=== PATIENT | female | born 1980 | race African-American/Black ===

== ENCOUNTER 2020-06-09 20:30 | Emergency (ER) | payer MEDICAID ==
--- NOTE | 2020-06-09 21:25 | ER Document Report ---
ED Medical Screen (RME) - General Chief Complaint: Breast Problem Stated Complaint: BREAST CYST Time Seen by Provider: 06/09/20 21:15 Primary Care Provider: KEN DE LA TORRE [Primary Care Provider] - Follow up as needed Information source: Patient Notes: Patient is a 39-year-old female comes emergency room complaining of having a "cyst" on her breast. Patient states approximately 2 to 3 years ago she had a similar presentation where it turned out to be an abscess that spontaneously ruptured and she was taken the OR from what she says and cleaned out and put on antibiotics. This 1 started approximately 3 days ago with starting to get painful and large 2 days ago. Patient states she was waiting like she did last time for her to rupture but it has not and is gotten excessively very painful and sore. She has had a low-grade fever for the past couple of days. She denies any vomiting but has severe nausea with this. She rates her pain right now 5 out of 5. Vital signs here showed a heart rate of a 111 bpm, temp 99.3 orally and blood pressure 164/97. Physical examination: Patient is a well-nourished well-developed 39-year-old female though in no apparent distress is in obvious discomfort. Cardiac: Tachycardia at 111 bpm noted. Lungs: Bilateral breath sounds breath sounds decreased no rhonchi rales or wheeze heard throughout. Breast: On a quick examination of patient's area concern right breast looks moderately swollen moderate erythema is noted throughout the nipple on quick examination does not show any dimpling at this time. But there is moderate tenderness on the end of the breast to light palpation. Further evaluation is going to have to be made when patient can completely undressed in her room in the back. I have greeted and performed a rapid initial assessment of this patient. A comprehensive ED assessment and evaluation of the patient, analysis of test results and completion of the medical decision making process will be conducted by additional ED providers. Dictation of this chart was performed using voice recognition software; therefore, there may be some unintended grammatical errors. Evaluation of patient to be performed by the provider in the back also to decide whether ultrasound of the breast is needed or CT. Physical Exam - Vital signs Vitals: Temp Pulse Resp BP Pulse Ox 99.3 F 111 H 12 154/93 H 99 06/09/20 20:44 06/09/20 20:44 06/09/20 20:44 06/09/20 20:44 06/09/20 20:44 Course - Vital Signs Vital signs: Temp Pulse Resp BP Pulse Ox 99.3 F 111 H 12 154/93 H 99 06/09/20 20:44 06/09/20 20:44 06/09/20 20:44 06/09/20 20:44 06/09/20 20:44 Doctor's Discharge - Discharge Referrals: LOCALMD,NO [Primary Care Provider] - Follow up as needed
[2020-06-09] MEDS ORDERED: ONDANSETRON HCL INJ/PF 4 MG/2 ML SDV IV ONE (21:28)
[2020-06-09] MEDS ORDERED: ONDANSETRON 4 MG TAB.RAPDIS PO ONE (21:30)
[2020-06-09] MEDS ORDERED: ONDANSETRON 4 MG TAB.RAPDIS ONE (21:31)
[2020-06-09 22:37] LABS: ABSOLUTE LYMPHOCYTES (AUTO) 1.1 10^3/uL (0.5-4.7); ABSOLUTE MONOCYTES (AUTO) 0.6 10^3/uL (0.1-1.4); ABSOLUTE NEUT (AUTO) 7.6 10^3/uL (1.7-8.2); BASOPHILS % (AUTO) 0.2 % (0-2); EOSINOPHILS % (AUTO) 0.2 % (0-6); HEMATOCRIT 40.1 % (36.0-47.0); HEMOGLOBIN 13.6 g/dL (12.0-15.5); LYMPHOCYTES % (AUTO) 11.8 % (13-45); MEAN CORPUSCULAR HEMOGLOBIN 31.6 pg (27.0-33.4); MEAN CORPUSCULAR HGB CONC 33.9 g/dL (32.0-36.0); MEAN CORPUSCULAR VOLUME 93 fl (80-97); MONOCYTES % (AUTO) 6.1 % (3-13); PLATELET COUNT 188 10^3/uL (150-450); RED BLOOD COUNT 4.31 10^6/uL (3.72-5.28); RED CELL DISTRIBUTION WIDTH 14.5 % (11.5-14.0); SEGMENTED NEUTROPHILS % (AUTO) 81.7 % (42-78); TOTAL CELLS COUNTED % (AUTO) 100 %; WHITE BLOOD COUNT 9.3 10^3/uL (4.0-10.5)
[2020-06-09 23:02] LABS: ALBUMIN 4.3 g/dL (3.5-5.0); ALKALINE PHOSPHATASE 96 U/L (38-126); ANION GAP 8 (5-19); ASPARTATE AMINO TRANSFERASE 52 U/L (14-36); BILIRUBIN,TOTAL 0.4 mg/dL (0.2-1.3); BLOOD UREA NITROGEN 7 mg/dL (7-20); CALCIUM 9.4 mg/dL (8.4-10.2); CARBON DIOXIDE 26 mmol/L (22-30); CHLORIDE 102 mmol/L (98-107); GLUCOSE 98 mg/dL (75-110); POTASSIUM 3.7 mmol/L (3.6-5.0); TOTAL PROTEIN 7.8 g/dL (6.3-8.2)
[2020-06-10] MEDS ORDERED: LIDOCAINE 2% INJ (20 MG/ML) 20 ML MDV INJ ONE (04:33)
--- NOTE | 2020-06-10 05:10 | RADIOLOGY REPORT (SQ) ---
Right breast ultrasound: 06/10/2020 4:07 AM CDT COMPARISON: None available TECHNIQUE: Multiple grayscale images of the area(s) of interest within the breast were obtained. HISTORY: 39-year-old patient with right breast tenderness, concern for an abscess. FINDINGS: There is a hypoechoic mass at the 5:00 position within the right breast measuring at least 5.5 x 3.1 x 4.1 cm. This has some increased peripheral vascularity. There may be some internal vascularity. This likely extends towards the nipple and has irregular borders. There is likely some necrotic or fluid content. IMPRESSION: There is a hypoechoic mass at the area of interest which may represent a necrotic mass or abscess. Interval follow-up within one month after appropriate treatment is recommended. BI-RADS 0: Needs additional imaging The patient's return for mammography and right breast ultrasound in one month after appropriate treatment.
[2020-06-10] MEDS ORDERED: CLINDAMYCIN HCL 150 MG CAPSULE PO ONE (05:33)
[2020-06-10] MEDS ORDERED: HYDROCODONE/ACETAMINOPHEN 5-325 MG (6 TAB/ER DISP) PO PRN (05:33)
[2020-06-10 05:54] VITALS: BP 150/88
--- NOTE | 2020-06-10 05:54 | ER Document Report ---
Entered by JERAD COOK SCRIBE 06/10/20 0321 Acting as scribe for:MARQUISE BIRD IV, MD ED Breast Problem - General Chief Complaint: Breast Problem Stated Complaint: BREAST CYST Time Seen by Provider: 06/09/20 21:15 Primary Care Provider: KEN DE LA TORRE [NO LOCAL MD] - Follow up as needed IVETTE CUMMINGS MD [ACTIVE STAFF] - 06/12/20 Mode of Arrival: Ambulatory Information source: Patient Notes: This 39 year old female patient presents to the ED today with complaints of a cyst to her right breast that developed about x3 days ago. Patient states that the area is red, painful, and swollen. She reports similar symptoms previously in the same breast about x3-4 years ago and states that at that time, she saw her PCP who placed her on a course of antibiotics and diagnosed her with Hidradenitis Suppurativa. She further reports that the cyst ruptured a few days later and that she came to the ED where a provider "finished draining it." She notes associated nausea and subjective fevers, but denies vomiting or drainage from the site. - Related Data Allergies/Adverse Reactions: latex Allergy (Verified 06/09/20 21:25) tramadol [From Ultram] Allergy (Verified 06/09/20 21:25) clindamycin Adverse Reaction (Verified 06/09/20 21:25) Past Medical History - General Information source: Patient - Social History Smoking Status: Never Smoker Cigarette use (# per day): No Chew tobacco use (# tins/day): No Smoking Education Provided: No Family History: Reviewed & Not Pertinent Patient has suicidal ideation: No Patient has homicidal ideation: No Skin Medical History: Reports Other - Hx Hidradenitis Suppurativa Review of Systems - Review of Systems Constitutional: See HPI, Fever EENT: No symptoms reported Cardiovascular: No symptoms reported Respiratory: No symptoms reported Gastrointestinal: See HPI, Nausea. denies: Vomiting Genitourinary: No symptoms reported Female Genitourinary: No symptoms reported Musculoskeletal: No symptoms reported Skin: See HPI Hematologic/Lymphatic: No symptoms reported Neurological/Psychological: No symptoms reported -: Yes All other systems reviewed and negative Physical Exam - Vital signs Vitals: Temp Pulse Resp BP Pulse Ox 99.3 F 111 H 12 154/93 H 99 06/09/20 20:44 06/09/20 20:44 06/09/20 20:44 06/09/20 20:44 06/09/20 20:44 - General General appearance: Alert In distress: None - HEENT Head: Normocephalic, Atraumatic Eyes: Normal Pupils: PERRL - Respiratory Respiratory status: No respiratory distress Chest status: Nontender Breath sounds: Normal Chest palpation: Normal - Cardiovascular Rhythm: Regular Heart sounds: Normal auscultation Murmur: No Friction rub: No Gallop: None auscultated - Abdominal Inspection: Normal Distension: No distension Bowel sounds: Normal Tenderness: Nontender - Abdomen soft Organomegaly: No organomegaly - Back Back: Normal, Nontender - Extremities General upper extremity: Normal inspection General lower extremity: Normal inspection - Neurological Neuro grossly intact: Yes Orientation: AAOx4 Miguelina Coma Scale Eye Opening: Spontaneous Miguelina Coma Scale Verbal: Oriented Miguelina Coma Scale Motor: Obeys Commands [place] Coma Scale Total: 15 - Psychological Associated symptoms: Normal affect, Normal mood - Skin Skin irregularity: Tender indurated area - that is 5 cm long x 2 cm wide with erythema located medial to her right areola. 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 All questions were answered prior to discharge. Emergency signs and symptoms, reasons to return to the emergency department discussed with patient. - Vital Signs Vital signs: Temp Pulse Resp BP Pulse Ox 99.3 F 111 H 12 154/93 H 99 06/09/20 20:44 06/09/20 20:44 06/09/20 20:44 06/09/20 20:44 06/09/20 20:44 - Laboratory Result Diagrams: 06/09/20 22:14 06/09/20 22:14 Laboratory results interpreted by me: 06/09/20 06/09/20 06/09/20 22:14 22:14 22:14 RDW 14.5 H Lymph % (Auto) 11.8 L Seg Neutrophils % 81.7 H Sodium 135.6 L Lactic Acid 0.6 L AST 52 H ALT 64 H - Diagnostic Test Radiology reviewed: Reports reviewed Procedures - Incision and Drainage Right Chest Time completed: 05:35 - right breast Type: Simple Anesthetic type: 2% Lidocaine mL's of anesthetic: 5 Blade size: 11 I&D procedure: Chlorprep applied Incision Method: Incision made by scalpel Amount/type of drainage: no purulent discharge Discharge - Discharge Clinical Impression: Mastitis, right, acute Condition: Stable Disposition: HOME, SELF-CARE Additional Instructions: Return to the Emergency Department without delay if any worse. HOME CARE INSTRUCTIONS & INFORMATION: Thank you for choosing us for your medical needs. We hope you're satisfied with the care you received. After you leave, you must properly care for your problem and, at the same time, observe its progress. Any condition can change. Some illnesses can change rapidly over hours or days. If your condition worsens, return to the Emergency Department or see your physician promptly. ABOUT YOUR X-RAYS AND EKG'S: If you had an EKG or X-rays taken, they have been read by the Emergency Physician. The X-rays and EKG's will also be read by a Radiologist or Utilization Coordinator within 24 hours. If discrepancies are noted, you will be notified by telephone. Please be certain the ED has a correct telephone number & address where you can be reached. Also, realize that some fractures or abnormalities do not show up on initial X-rays. If your symptoms continue, see your physician. ABOUT YOUR LABORATORY TEST: If you had laboratory tests, the results have been reviewed by the Emergency Physician. Some test results (for example cultures) may not be available for several days. You will be contacted if any test result shows you need additional treatment. Please be certain the ED has a correct telephone number and address where you can be reached. ABOUT YOUR MEDICATIONS: You will receive instructions on how to take your medicine on the prescription label you receive. Additional information may be provided by the Pharmacy. If you have questions afterwards, call the ED for clarification or further instructions. Some prescribed medications may cause drowsiness. Do not perform tasks such as driving a car or operating machinery without consulting your Pharmacist. If you feel you need a refill of pain medication, your condition will need re-evaluation. Please do not call for a refill of any medication. ABOUT YOUR SIGNATURE: Signature of this document acknowledges to followin. Understanding that you received emergency treatment and that you may be released before al medical problems are known or treated. Please be certain the ED has a correct phone number & address where you can be reached. 2. Acknowledgement that you will arrange for follow-up care as recommended. 3. Authorization for the Emergency Physician to provide information to your follow-up Physician in order to maximize your care. AT ANY TIME, IF YOUR SYMPTOMS CHANGE SIGNIFICANTLY OR WORSEN OR YOU DEVELOP NEW SYMPTOMS, RETURN TO THE EMERGENCY DEPARTMENT IMMEDIATELY FOR RE-EVALUATION. OUR GOAL IS TO PROVIDE EXCELLENT MEDICAL CARE! WE HOPE THAT WE HAVE MET YOUR EXPECTATIONS DURING YOUR EMERGENCY DEPARTMENT VISIT AND THAT YOU FEEL YOU HAVE RECEIVED EXCELLENT CARE! Mastitis (Breast Infection) You have an infection in your breast, called mastitis. This is due to bacteria invading the breast through the milk ducts. Mastitis can be serious, and must be treated carefully. Antibiotics are required. Usually, warm packs are recommended. Some improvement should be evident within 24 to 36 hours. If you're breast-feeding, you should continue to nurse the baby. The baby won't be harmed by the milk from the infected breast. If you stop nursing, the breast must be pumped. If milk builds up in the breast, the infection can dramatically worsen! Follow-up care is important to check for abscess (boil) formation or resistant infection. If you develop fever, chills, or if the area of infection is becoming rapidly more swollen or painful, call the doctor at once. Prescriptions: Oxycodone HCl/Acetaminophen [Percocet 5-325 mg Tablet] 1 tab PO Q6HP PRN #15 tablet PRN Reason: Clindamycin HCl [Cleocin 150 mg Capsule] 450 mg PO TID 10 Days #90 capsule Referrals: BRITT,NO [NO LOCAL MD] - Follow up as needed IVETTE CUMMINGS MD [ACTIVE STAFF] - 06/12/20 I personally performed the services described in the documentation, reviewed and edited the documentation which was dictated to the scribe in my presence, and it accurately records my words and actions.
== END 2020-06-10 05:54 | disposition home or self-care (01) ==
LOC: ER 20:30
PROC: 0H9T0ZZ Drainage of Right Breast, Open Approach (ICD-10-PCS; principal; 2020-06-09)
DX: N61.1 Abscess of the breast and nipple (principal); N64.4 Mastodynia; R11.0 Nausea; Z88.8 Allergy status to other drugs, medicaments and biological substances; Z88.1 Allergy status to other antibiotic agents
CPT/HCPCS: 99284; 36415; 87040; 83605; 85025; 80053; 76642; 10060; J3490 ×2; S0119

== ENCOUNTER → 2020-08-03 | Outpatient (CLI) | payer MEDICAID ==
[2020-08-03 09:26] LABS: ABSOLUTE EOSINOPHILS # (AUTO) 0.1 10^3/uL (0.0-0.6); ABSOLUTE LYMPHOCYTES (AUTO) 1.2 10^3/uL (0.5-4.7); ABSOLUTE MONOCYTES (AUTO) 0.3 10^3/uL (0.1-1.4); ABSOLUTE NEUT (AUTO) 3.1 10^3/uL (1.7-8.2); BASOPHILS % (AUTO) 0.3 % (0-2); EOSINOPHILS % (AUTO) 1.2 % (0-6); HEMATOCRIT 38.5 % (36.0-47.0); HEMOGLOBIN 13.2 g/dL (12.0-15.5); LYMPHOCYTES % (AUTO) 25.4 % (13-45); MEAN CORPUSCULAR HEMOGLOBIN 31.6 pg (27.0-33.4); MEAN CORPUSCULAR HGB CONC 34.3 g/dL (32.0-36.0); MEAN CORPUSCULAR VOLUME 92 fl (80-97); MONOCYTES % (AUTO) 7.3 % (3-13); PLATELET COUNT 183 10^3/uL (150-450); RED BLOOD COUNT 4.18 10^6/uL (3.72-5.28); RED CELL DISTRIBUTION WIDTH 15.7 % (11.5-14.0); SEGMENTED NEUTROPHILS % (AUTO) 65.8 % (42-78); TOTAL CELLS COUNTED % (AUTO) 100 %; WHITE BLOOD COUNT 4.7 10^3/uL (4.0-10.5)
[2020-08-03 09:53] LABS: ALBUMIN 4.4 g/dL (3.5-5.0); ALKALINE PHOSPHATASE 74 U/L (38-126); ANION GAP 10 (5-19); ASPARTATE AMINO TRANSFERASE 28 U/L (14-36); BILIRUBIN,DIRECT 0.2 mg/dL (0.0-0.4); BILIRUBIN,TOTAL 0.5 mg/dL (0.2-1.3); BLOOD UREA NITROGEN 9 mg/dL (7-20); CALCIUM 9.4 mg/dL (8.4-10.2); CARBON DIOXIDE 25 mmol/L (22-30); CHLORIDE 104 mmol/L (98-107); CHOLESTEROL 176.24 mg/dL (0-200); GLUCOSE 99 mg/dL (75-110); TOTAL PROTEIN 7.5 g/dL (6.3-8.2); TRIGLYCERIDES 79 mg/dL (<150)
[2020-08-03 10:04] LABS: DIRECT LDL 79 mg/dL (<100)
[2020-08-03 10:05] LABS: FREE T4 (FREE THYROXINE) 1.02 ng/dL (0.78-2.19)
[2020-08-03 10:19] LABS: THYROID STIMULATING HORMONE 1.89 uIU/mL (0.47-4.68)
== END ==
LOC: OD 07:58
PROVIDERS: ATTEND Internal Medicine
DX: L73.2 Hidradenitis suppurativa (principal); Z68.35 Body mass index [BMI] 35.0-35.9, adult
CPT/HCPCS: 36415; 80053; 80061; 83036; 83525; 84439; 84443; 85025